=== PATIENT | female | born 1955 | race Two or more races ===

== ENCOUNTER 2023-04-14 18:04 | Emergency (ER) | payer MEDICAID ==
[~2023-04-14] VITALS: Ht 162.6 cm; Wt 74.0 kg
[~2023-04-14 18:04] MED LIST: CYCL-448 PO; IBUP-1492 PO
[2023-04-14 19:30] VITALS: TEMP 97.3
[2023-04-14] MEDS ORDERED: IBUPROFEN 600 MG TABLET PO ONE (19:45)
[2023-04-14] MEDS ORDERED: IBUP-1492 PO (19:48)
[2023-04-14 20:30] VITALS: BP 134/79; PULSE 73; RESP 18
== END 2023-04-14 20:40 | disposition home or self-care (01) ==
LOC: EMS 18:21
DX: S83.92XA Sprain of unspecified site of left knee, initial encounter (principal); I10 Essential (primary) hypertension; H40.9 Unspecified glaucoma; W19.XXXA Unspecified fall, initial encounter; Y93.89 Activity, other specified; Y92.89 Other specified places as the place of occurrence of the external cause; Y99.8 Other external cause status
CPT/HCPCS: 99283

== ENCOUNTER 2025-04-13 12:03 | Emergency (ER) | payer MEDICAID, OTHER ==
[~2025-04-13] VITALS: Ht 167.6 cm; Wt 67.0 kg
[2025-04-13 12:12] VITALS: TEMP 97.7
[2025-04-13] MEDS ORDERED: LATA2.5D14 OU (14:33)
[2025-04-13] MEDS ORDERED: DORZ10DR10 OU (14:33)
[2025-04-13] MEDS: ACETAMINOPHEN/CODEINE 300-30 MG TABLET PO ONE (14:37)
[2025-04-13] MEDS: IBUPROFEN 200 MG TABLET PO ONE (14:37)
[2025-04-13] MEDS ORDERED: IBUP-1554 PO (16:34)
[2025-04-13] MEDS ORDERED: ACET-2080 PO (16:34)
[2025-04-13 16:38] VITALS: BP 148/68; PULSE 69; RESP 16; O2SAT 98
== END 2025-04-13 17:09 | disposition home or self-care (01) ==
LOC: EMS 12:05
DX: S20.219A Contusion of unspecified front wall of thorax, initial encounter (principal); I10 Essential (primary) hypertension; Z79.899 Other long term (current) drug therapy; W01.0XXA Fall on same level from slipping, tripping and stumbling without subsequent striking against object, initial encounter; Y93.89 Activity, other specified; Y92.89 Other specified places as the place of occurrence of the external cause; Y99.9 Unspecified external cause status
CPT/HCPCS: 71046; 71100; 99284